=== PATIENT | male | born 1995 | race Caucasian/White ===

== ENCOUNTER → 2018-06-16 07:23 | Outpatient (CLI) | payer OTHER, MEDICAID, SELFPAY | PROVIDERS: Visit Provider Psychiatry & Neurology Clinical Neurophysiology | DX: G40.319 Generalized idiopathic epilepsy and epileptic syndromes, intractable, without status epilepticus (principal) | CPT/HCPCS: 36415; 82140; 82542 ==

== ENCOUNTER → 2018-07-15 08:19 | Outpatient (CLI) | payer OTHER, MEDICAID, SELFPAY | PROVIDERS: Visit Provider Internal Medicine Nephrology | DX: G40.319 Generalized idiopathic epilepsy and epileptic syndromes, intractable, without status epilepticus (principal) | CPT/HCPCS: 36415; 80346; 82542 ==

== ENCOUNTER → 2018-09-16 07:13 | Outpatient (CLI) | payer OTHER, MEDICAID, SELFPAY ==
[2018-09-16 08:35] LABS: Add Manual Diff / Slide Review NO; Basophils Percent Auto 0.3 % (0-2); Eosinophils Percent Auto 0.7 % (2-4); Hematocrit 35.7 % (41-53); Hemoglobin 12.2 g/dL (13.5-17.5); Lymphocytes Percent Auto 38.3 % (25-40); Mean Corpuscular HGB Conc 34.1 % (30-36); Mean Corpuscular Hemoglobin 33.4 PG (26-34); Mean Corpuscular Volume 98.1 fL (80-100); Monocytes Percent Auto 10.1 % (3-14); Neutrophils Absolute Auto 2800 /uL (1500-7000); Neutrophils Percent Auto 50.6 % (50-75); Platelet Count 229 X10^3/uL (150-400); Red Blood Cell Count 3.64 X10^6/uL (4.5-5.9); Red Cell Distribution Width 13.3 % (11.6-14.8); White Blood Cell Count 5.6 X10^3/uL (4.5-11.0)
[2018-09-16 08:46] LABS: Alanine Aminotransferase 21 IU/L (21-72); Albumin 4.1 g/dL (3.5-5.0); Albumin Globulin Ratio 1.3 (1.0-2.8); Alkaline Phosphatase 87 U/L (38-126); Aspartate Aminotransferase 29 IU/L (17-59); Blood Urea Nitrogen 6 mg/dL (9-20); Calcium 9.5 mg/dL (8.4-10.2); Carbon Dioxide 24 mmol/L (22-32); Estimated Glomerular Filt Rate > 60.0 mL/min (>60); Globulin 3.1 g/dL (1.7-4.1); Glucose 108 mg/dL (70-100); HEMOLYSIS < 15 (0-50); Potassium 4.3 mmol/L (3.4-5.1); Sodium 141 mmol/L (137-145); Total Protein 7.2 g/dL (6.3-8.2)
[2018-09-16 08:54] LABS: Bilirubin Total 0.1 mg/dL (0.2-1.3)
[2018-09-16 09:54] LABS: Folate > 20.0 ng/mL (2.76-20.0); Vitamin B12 676 pg/mL (239-931)
[2018-09-16 09:59] LABS: Chloride 129 mmol/L (98-107)
== END ==
PROVIDERS: Visit Provider Nurse Practitioner
DX: G40.319 Generalized idiopathic epilepsy and epileptic syndromes, intractable, without status epilepticus (principal)
CPT/HCPCS: 36415; 80053; 80164; 80339; 80346; 82140; 82379; 82542; 82607; 82746; 85025

== ENCOUNTER 2018-11-08 14:47 | Emergency (ER) | payer OTHER, MEDICAID, SELFPAY ==
[2018-11-08 14:54] VITALS: PULSE 111; RESP 24; TEMP 36.6; O2SAT 98
--- NOTE | 2018-11-08 16:59 | ED.SEIZURE ---
HPI - Seizure General Chief Complaint: Seizure Stated Complaint: RT SIDE IS LIMP Time Seen by Provider: 11/08/18 15:39 Source: patient and family Mode of arrival: ambulatory Limitations: physical limitation History of Present Illness HPI Narrative: 23-year-old male with history of seizures and developmental delay presents with his father and a chief complaint of a seizure a few days ago and a period of time which is right upper extremity was apparently week. That long resolved prior to arrival but patient presents at the request of his doctor. Patient suffered no injury as a consequence of the seizure and has been acting at baseline. Patient has had no fever or chills nor alterations in his medications. The seizure was witnessed by the patient's father and followed a rather typical course, any is often had episodes where his right upper extremity seems to be affected with delayed symptoms after seizure MD complaint: seizure Onset (ago): minute(s) Description of Episode: tonic-clonic movement Duration of episode: 30 -: second(s) Witnessed: yes - by bystander Trauma: No Seizure History: known seizure disorder Place: home Possible Precipitating Event: none Treatments prior to arrival: none Related Data Home Medications Medication Instructions Recorded Confirmed Acidophilus 178 mg PO DAILY 11/08/18 11/08/18 Aloe-Vera 2 oz PO BID 11/08/18 11/08/18 Diacomit Stiripentol 1,000 mg PO BID 11/08/18 11/08/18 Potassium Macy 1.5 ml PO TID 11/08/18 11/08/18 ascorbic acid (vitamin C) 500 mg PO BID 11/08/18 11/08/18 azelastine 1 spray INTRANASAL BID 11/08/18 11/08/18 bacitracin-polymyxin B [Polysporin] 1 applic TOPICAL BID 11/08/18 11/08/18 cholecalciferol (vitamin D3) 1,000 unit PO QPM 11/08/18 11/08/18 [Vitamin D3] clobazam 25 mg PO BID 11/08/18 11/08/18 coenzyme Q10 [Co Q-10] 100 mg PO BID 11/08/18 11/08/18 diazepam 1 dose [place] PRN PRN 11/08/18 11/08/18 divalproex [Depakote] 125 mg PO TID 11/08/18 11/08/18 ferrous gluconate 324 mg PO Q OTHER DAY 11/08/18 11/08/18 fexofenadine 180 mg PO DAILY 11/08/18 11/08/18 folic acid 1 mg PO DAILY 11/08/18 11/08/18 guaifenesin 600 mg PO PRN PRN MDD 6 tabs 11/08/18 11/08/18 guanfacine 1 mg PO BEDTIME 11/08/18 11/08/18 ibuprofen 400 mg PO Q6H PRN 11/08/18 11/08/18 iloperidone [Fanapt] 2 mg PO BID 11/08/18 11/08/18 lactulose 6 ml PO TID 11/08/18 11/08/18 levocarnitine 330 mg PO BID 11/08/18 11/08/18 montelukast 10 mg PO QAM 11/08/18 11/08/18 multivitamin,fq-swix-lgykagoj 1 tab PO DAILY 11/08/18 11/08/18 [Complete Multivitamin] naproxen 250 mg PO BID PRN 11/08/18 11/08/18 olanzapine [Zyprexa Zydis] 5 mg PO BID PRN MDD 2 doses 11/08/18 11/08/18 omega 1-glx-hmq-fish oil [Fish Oil] 1,000 mg PO 1800 11/08/18 11/08/18 polyethylene glycol 3350 17 g PO PRN PRN MDD 2 doses 11/08/18 11/08/18 quetiapine 50 mg PO PRN PRN MDD 50 mg 11/08/18 11/08/18 vitamin B complex 1 tab PO DAILY 11/08/18 11/08/18 vitamin E 400 unit PO 1800 11/08/18 11/08/18 Allergies Allergy/AdvReac Type Severity Reaction Status Date / Time cefprozil [From Cefzil] Allergy Unknown Verified 11/08/18 15:42 prednisone Allergy Unknown Verified 11/08/18 15:42 acetaminophen [From Tylenol] Allergy Verified 11/08/18 14:54 Review of Systems Review of Systems ROS Unobtainable: Unobtainable due to medical condition and Unobtainable due to mental condition PFSH Social History Smoking Status: Never smoker Social History Smoking Status: Never smoker Exam Narrative Exam Narrative: GEN: 23-year-old male is awake and alert and at baseline per father. EYES: Pupils are equal, round, and reactive to light and accommodation. Extraoccular muscles are intact bilaterally. There is no subconjunctival hemorrhage or exudate. CHEST: Lungs are clear to auscultation bilaterally and free of wheezes, rales, or rhonchi. Heart rate is regular rhythm, there are no murmurs, clicks, rubs, or gallops. There is no chest wall tenderness. ABD: Abdomen is soft and nontender. There is no guarding or rebound. Bowel sounds are normal in all 4 quadrants. There is no mass or organomegaly. EXT: Full painless ROM of all extremities with no loss of sensation or strength. No suggested pain in shoulder SKIN: Warm, pink, and dry. No erythema or rash Initial Vital Signs Initial Vital Signs: Vital Signs Temperature 97.9 F 11/08/18 14:54 Pulse Rate 111 H 11/08/18 14:54 Respiratory Rate 24 11/08/18 14:54 Pulse Oximetry 98 11/08/18 14:54 Course Vital Signs - 8 hr 11/08/18 14:54 Temperature 97.9 F Pulse Rate 111 H Respiratory Rate 24 Pulse Oximetry 98 MDM - Seizure MDM Narrative Medical decision making narrative: Patient with known seizure history had a seizure and what appeared to be residual right upper extremity weakness. This has happened with prior seizures and all other symptoms have since resolved. Dislocation versus subluxation is considered as well as Terry's paralysis versus other. Patient is at baseline and discussion of imaging with father results in decision to hold off for now. Return precautions discussed and understanding verbalized by father Discharge Plan Departure Patient Disposition: Home Clinical Impression: Epileptic seizure Discharge Date/Time: 11/08/18 17:03 Interventions: ED Discharge Assessment Last Done: 11/08/18 17:02 Instructions: DI for Seizure Disorder -- Adult Activity Restrictions/Additional Instructions: *You have been diagnosed with [ breakthrough seizure ] *What to do: *Continue to take medications as directed *Follow up with your primary care provider in 2-3 days, call for an appointment. Let them know you were seen in the Emergency Department and that we ask that you be seen in follow up *Return to ER if you should have any new, worsening or concerning symptoms Prescriptions: No Action Acidophilus 178 mg wafer 178 mg PO DAILY RF: 0 Aloe-Vera liquid 2 oz PO BID RF: 0 fexofenadine 180 mg Tablet 180 mg PO DAILY RF: 0 levocarnitine 330 mg Tablet 330 mg PO BID RF: 0 vitamin B complex Tablet 1 tab PO DAILY RF: 0 folic acid 1 mg Tablet 1 mg PO DAILY RF: 0 montelukast 10 mg Tablet 10 mg PO QAM RF: 0 multivitamin,fk-zigp-awecabjp [Complete Multivitamin] Tablet 1 tab PO DAILY RF: 0 coenzyme Q10 [Co Q-10] 100 mg Capsule 100 mg PO BID RF: 0 bacitracin-polymyxin B [Polysporin] 500-10,000 unit/gram Packet 1 applic TOPICAL BID RF: 0 lactulose 10 gram/15 mL Solution 6 ml PO TID RF: 0 azelastine 0.15 % (205.5 mcg) [place],Non-Aerosol 1 spray Intranasal BID RF: 0 iloperidone [Fanapt] 2 mg Tablet 2 mg PO BID RF: 0 ferrous gluconate 324 mg (37.5 mg iron) Tablet 324 mg PO Q OTHER DAY RF: 0 clobazam 10 mg Tablet 25 mg PO BID RF: 0 Diacomit Stiripentol 250 mg capsule 1,000 mg PO BID RF: 0 Potassium Macy 300 mg solution 1.5 ml PO TID RF: 0 divalproex [Depakote] 125 mg Tablet,Delayed Release (Dr/Ec) 125 mg PO TID RF: 0 naproxen 250 mg Tablet 250 mg PO BID PRN (Reason: pain and swelling) RF: 0 ascorbic acid (vitamin C) 500 mg Tablet 500 mg PO BID RF: 0 ibuprofen 400 mg Tablet 400 mg PO Q6H PRN (Reason: pain) RF: 0 guanfacine 1 mg Tablet 1 mg PO BEDTIME RF: 0 polyethylene glycol 3350 17 gram/dose Powder 17 g PO PRN MDD 2 doses PRN (Reason: Constipation) RF: 0 vitamin E 400 unit Capsule 400 unit PO 1800 RF: 0 olanzapine [Zyprexa Zydis] 5 mg Tablet,Disintegrating 5 mg PO BID MDD 2 doses PRN (Reason: Agitation) RF: 0 cholecalciferol (vitamin D3) [Vitamin D3] 1,000 unit Capsule 1,000 unit PO QPM RF: 0 quetiapine 50 mg Tablet 50 mg PO PRN MDD 50 mg PRN (Reason: bad behavior or hitting) RF: 0 omega 3-nrn-gcr-fish oil [Fish Oil] 1,000 mg (120 mg-180 mg) Capsule 1,000 mg PO 1800 RF: 0 guaifenesin 600 mg Tablet Extended Release 12hr 600 mg PO PRN MDD 6 tabs PRN (Reason: Congestion) RF: 0 diazepam gel 1 dose [place] PRN PRN (Reason: seizure) RF: 0
--- NOTE | 2018-11-08 19:38 | ED_ITS ---
HPI - Seizure General Chief Complaint: Seizure Stated Complaint: RT SIDE IS LIMP Time Seen by Provider: 11/08/18 15:39 Source: patient and family Mode of arrival: ambulatory Limitations: physical limitation History of Present Illness HPI Narrative: 23-year-old male with history of seizures and developmental delay presents with his father and a chief complaint of a seizure a few days ago and a period of time which is right upper extremity was apparently week. That long resolved prior to arrival but patient presents at the request of his doctor. Patient suffered no injury as a consequence of the seizure and has been acting at baseline. Patient has had no fever or chills nor alterations in his medications. The seizure was witnessed by the patient's father and followed a rather typical course, any is often had episodes where his right upper extremity seems to be affected with delayed symptoms after seizure MD complaint: seizure Onset (ago): minute(s) Description of Episode: tonic-clonic movement Duration of episode: 30 -: second(s) Witnessed: yes - by bystander Trauma: No Seizure History: known seizure disorder Place: home Possible Precipitating Event: none Treatments prior to arrival: none Related Data Home Medications Medication Instructions Recorded Confirmed Acidophilus 178 mg PO DAILY 11/08/18 11/08/18 Aloe-Vera 2 oz PO BID 11/08/18 11/08/18 Diacomit Stiripentol 1,000 mg PO BID 11/08/18 11/08/18 Potassium [place] 1.5 ml PO TID 11/08/18 11/08/18 ascorbic acid (vitamin C) 500 mg PO BID 11/08/18 11/08/18 azelastine 1 spray INTRANASAL BID 11/08/18 11/08/18 bacitracin-polymyxin B [Polysporin] 1 applic TOPICAL BID 11/08/18 11/08/18 cholecalciferol (vitamin D3) 1,000 unit PO QPM 11/08/18 11/08/18 [Vitamin D3] clobazam 25 mg PO BID 11/08/18 11/08/18 coenzyme Q10 [Co Q-10] 100 mg PO BID 11/08/18 11/08/18 diazepam 1 dose [place] PRN PRN 11/08/18 11/08/18 divalproex [Depakote] 125 mg PO TID 11/08/18 11/08/18 ferrous gluconate 324 mg PO Q OTHER DAY 11/08/18 11/08/18 fexofenadine 180 mg PO DAILY 11/08/18 11/08/18 folic acid 1 mg PO DAILY 11/08/18 11/08/18 guaifenesin 600 mg PO PRN PRN MDD 6 tabs 11/08/18 11/08/18 guanfacine 1 mg PO BEDTIME 11/08/18 11/08/18 ibuprofen 400 mg PO Q6H PRN 11/08/18 11/08/18 iloperidone [Fanapt] 2 mg PO BID 11/08/18 11/08/18 lactulose 6 ml PO TID 11/08/18 11/08/18 levocarnitine 330 mg PO BID 11/08/18 11/08/18 montelukast 10 mg PO QAM 11/08/18 11/08/18 multivitamin,lx-mnjp-twjulvvl 1 tab PO DAILY 11/08/18 11/08/18 [Complete Multivitamin] naproxen 250 mg PO BID PRN 11/08/18 11/08/18 olanzapine [Zyprexa Zydis] 5 mg PO BID PRN MDD 2 doses 11/08/18 11/08/18 omega 4-qsw-lqk-fish oil [Fish Oil] 1,000 mg PO 1800 11/08/18 11/08/18 polyethylene glycol 3350 17 g PO PRN PRN MDD 2 doses 11/08/18 11/08/18 quetiapine 50 mg PO PRN PRN MDD 50 mg 11/08/18 11/08/18 vitamin B complex 1 tab PO DAILY 11/08/18 11/08/18 vitamin E 400 unit PO 1800 11/08/18 11/08/18 Allergies Allergy/AdvReac Type Severity Reaction Status Date / Time cefprozil [From Cefzil] Allergy Unknown Verified 11/08/18 15:42 prednisone Allergy Unknown Verified 11/08/18 15:42 acetaminophen [From Tylenol] Allergy Verified 11/08/18 14:54 Review of Systems Review of Systems ROS Unobtainable: Unobtainable due to medical condition and Unobtainable due to mental condition PFSH Social History Smoking Status: Never smoker Social History Smoking Status: Never smoker Exam Narrative Exam Narrative: GEN: 23-year-old male is awake and alert and at baseline per father. EYES: Pupils are equal, round, and reactive to light and accommodation. Extraoccular muscles are intact bilaterally. There is no subconjunctival hemorrhage or exudate. CHEST: Lungs are clear to auscultation bilaterally and free of wheezes, rales, or rhonchi. Heart rate is regular rhythm, there are no murmurs, clicks, rubs, or gallops. There is no chest wall tenderness. ABD: Abdomen is soft and nontender. There is no guarding or rebound. Bowel sounds are normal in all 4 quadrants. There is no mass or organomegaly. EXT: Full painless ROM of all extremities with no loss of sensation or strength. No suggested pain in shoulder SKIN: Warm, pink, and dry. No erythema or rash Initial Vital Signs Initial Vital Signs: Vital Signs Temperature 97.9 F 11/08/18 14:54 Pulse Rate 111 H 11/08/18 14:54 Respiratory Rate 24 11/08/18 14:54 Pulse Oximetry 98 11/08/18 14:54 Course Vital Signs - 8 hr 11/08/18 14:54 Temperature 97.9 F Pulse Rate 111 H Respiratory Rate 24 Pulse Oximetry 98 MDM - Seizure MDM Narrative Medical decision making narrative: Patient with known seizure history had a seizure and what appeared to be residual right upper extremity weakness. This has happened with prior seizures and all other symptoms have since resolved. Dislocation versus subluxation is considered as well as Terry's paralysis versus other. Patient is at baseline and discussion of imaging with father results in decision to hold off for now. Return precautions discussed and understanding verbalized by father Discharge Plan Departure Patient Disposition: Home Clinical Impression: Epileptic seizure Discharge Date/Time: 11/08/18 17:03 Interventions: ED Discharge Assessment Last Done: 11/08/18 17:02 Instructions: DI for Seizure Disorder -- Adult Activity Restrictions/Additional Instructions: *You have been diagnosed with [ breakthrough seizure ] *What to do: *Continue to take medications as directed *Follow up with your primary care provider in 2-3 days, call for an appointment. Let them know you were seen in the Emergency Department and that we ask that you be seen in follow up *Return to ER if you should have any new, worsening or concerning symptoms Prescriptions: No Action Acidophilus 178 mg wafer 178 mg PO DAILY RF: 0 Aloe-Vera liquid 2 oz PO BID RF: 0 fexofenadine 180 mg Tablet 180 mg PO DAILY RF: 0 levocarnitine 330 mg Tablet 330 mg PO BID RF: 0 vitamin B complex Tablet 1 tab PO DAILY RF: 0 folic acid 1 mg Tablet 1 mg PO DAILY RF: 0 montelukast 10 mg Tablet 10 mg PO QAM RF: 0 multivitamin,rk-[id number]-pfsbqoff [Complete Multivitamin] Tablet 1 tab PO DAILY RF: 0 coenzyme Q10 [Co Q-10] 100 mg Capsule 100 mg PO BID RF: 0 bacitracin-polymyxin B [Polysporin] 500-10,000 unit/gram Packet 1 applic TOPICAL BID RF: 0 lactulose 10 gram/15 mL Solution 6 ml PO TID RF: 0 azelastine 0.15 % (205.5 mcg) [place],Non-Aerosol 1 spray Intranasal BID RF: 0 iloperidone [Fanapt] 2 mg Tablet 2 mg PO BID RF: 0 ferrous gluconate 324 mg (37.5 mg iron) Tablet 324 mg PO Q OTHER DAY RF: 0 clobazam 10 mg Tablet 25 mg PO BID RF: 0 Diacomit Stiripentol 250 mg capsule 1,000 mg PO BID RF: 0 Potassium [place] 300 mg solution 1.5 ml PO TID RF: 0 divalproex [Depakote] 125 mg Tablet,Delayed Release (Dr/Ec) 125 mg PO TID RF: 0 naproxen 250 mg Tablet 250 mg PO BID PRN (Reason: pain and swelling) RF: 0 ascorbic acid (vitamin C) 500 mg Tablet 500 mg PO BID RF: 0 ibuprofen 400 mg Tablet 400 mg PO Q6H PRN (Reason: pain) RF: 0 guanfacine 1 mg Tablet 1 mg PO BEDTIME RF: 0 polyethylene glycol 3350 17 gram/dose Powder 17 g PO PRN MDD 2 doses PRN (Reason: Constipation) RF: 0 vitamin E 400 unit Capsule 400 unit PO 1800 RF: 0 olanzapine [Zyprexa Zydis] 5 mg Tablet,Disintegrating 5 mg PO BID MDD 2 doses PRN (Reason: Agitation) RF: 0 cholecalciferol (vitamin D3) [Vitamin D3] 1,000 unit Capsule 1,000 unit PO QPM RF: 0 quetiapine 50 mg Tablet 50 mg PO PRN MDD 50 mg PRN (Reason: bad behavior or hitting) RF: 0 omega 8-zqx-rdv-fish oil [Fish Oil] 1,000 mg (120 mg-180 mg) Capsule 1,000 mg PO 1800 RF: 0 guaifenesin 600 mg Tablet Extended Release 12hr 600 mg PO PRN MDD 6 tabs PRN (Reason: Congestion) RF: 0 diazepam gel 1 dose NC PRN PRN (Reason: seizure) RF: 0
== END 2018-11-08 17:03 | disposition home or self-care (01) ==
PROVIDERS: Emergency Provider Emergency Medicine
DX: G40.909 Epilepsy, unspecified, not intractable, without status epilepticus (principal)
CPT/HCPCS: 99282

== ENCOUNTER → 2018-11-22 07:09 | Outpatient (CLI) | payer OTHER, MEDICAID, SELFPAY ==
[2018-11-22 15:11] LABS: Alanine Aminotransferase 25 IU/L (21-72); Albumin 4.6 g/dL (3.5-5.0); Albumin Globulin Ratio 1.5 (1.0-2.8); Alkaline Phosphatase 76 U/L (38-126); Aspartate Aminotransferase 29 IU/L (17-59); BUN Creatinine Ratio 11.7 (6-22); Bilirubin Total 0.2 mg/dL (0.2-1.3); Blood Urea Nitrogen 7 mg/dL (9-20); Calcium 10.2 mg/dL (8.4-10.2); Carbon Dioxide 26 mmol/L (22-32); Estimated Glomerular Filt Rate > 60.0 mL/min (>60); Globulin 3.1 g/dL (1.7-4.1); Glucose 69 mg/dL (70-100); HEMOLYSIS < 15 (0-50); Potassium 4.8 mmol/L (3.4-5.1); Sodium 142 mmol/L (137-145); Total Protein 7.7 g/dL (6.3-8.2)
[2018-11-22 15:30] LABS: Chloride 124 mmol/L (98-107)
== END ==
PROVIDERS: Visit Provider Nurse Practitioner
DX: G40.319 Generalized idiopathic epilepsy and epileptic syndromes, intractable, without status epilepticus (principal)
CPT/HCPCS: 36415; 80053; 80346

== ENCOUNTER 2018-11-28 10:11 | Emergency (ER) | payer OTHER, MEDICAID, SELFPAY ==
--- NOTE | 2018-11-28 10:23 | DI.US.S_ITS ---
PROCEDURE: US SCROTUM INDICATIONS: RIGHT SWELLING TECHNIQUE: Real-time scanning was performed of the scrotum and testicles, with image documentation. Color and pulse Doppler interrogation was performed of both testicles. COMPARISON: None. FINDINGS: Right: Testicle is normal in size at 4.8 x 3.1 x 2.5 cm, and homogenous in echotexture. Epididymis is normal in overall size and morphology. No varicoceles. There is a large right hydrocele. Overlying scrotal skin is normal in thickness. Left: Testicle is normal in size at 4.3 x 3.2 x 2.4 cm, and homogeneous in echotexture. Epididymis is normal in overall size and morphology. No varicoceles. There is a large left hydrocele. Overlying scrotal skin is normal in thickness. Doppler: Color and pulse Doppler demonstrate normal and symmetric arterial flow in both testicles. IMPRESSION: 1. Large bilateral hydroceles. 2. Normal testicular blood flow bilaterally. A Dictated by: Karon Monreal M.D. on 11/28/2018 at 11:17 Approved by: Karon Monreal M.D. on 11/28/2018 at 11:22
[2018-11-28 10:25] VITALS: BP 126/69; PULSE 80; RESP 20
--- NOTE | 2018-11-28 10:36 | ED.MALEGU ---
HPI - Male Genitourinary General Chief complaint: Urogenital-Male Stated complaint: CHECK UP Time Seen by Provider: 11/28/18 10:22 Source: other ( Caregiver) Mode of arrival: ambulatory Limitations: physical limitation History of Present Illness HPI Narrative: patient is a 23-year-old male with history of developmental delay presenting with scrotal swelling. He is monitored by 2 caregivers 24 hr a day. Today when the caregiver said he noticed some swelling yesterday he also noted a bruise on his right leg. He does drove himself against ramirez at times. Unclear if there was an exact injury. His he seems to be urinating without difficulty. MD Complaint: testicle swelling Related Data Home Medications Medication Instructions Recorded Confirmed Acidophilus 178 mg PO DAILY 11/08/18 11/28/18 Aloe-Vera 2 oz PO BID 11/08/18 11/28/18 Diacomit Stiripentol 1,000 mg PO BID 11/08/18 11/28/18 Potassium [place] 1.5 ml PO TID 11/08/18 11/28/18 ascorbic acid (vitamin C) 500 mg PO BID 11/08/18 11/28/18 azelastine 1 spray INTRANASAL BID 11/08/18 11/28/18 cholecalciferol (vitamin D3) 1,000 unit PO 1800 11/08/18 11/28/18 [Vitamin D3] clobazam 25 mg PO BID 11/08/18 11/28/18 coenzyme Q10 [Co Q-10] 100 mg PO BID 11/08/18 11/28/18 diazepam 1 dose NM PRN PRN 11/08/18 11/28/18 divalproex [Depakote] 125 mg PO BID 11/08/18 11/28/18 ferrous gluconate 324 mg PO Q OTHER DAY 11/08/18 11/28/18 fexofenadine 180 mg PO DAILY 11/08/18 11/28/18 folic acid 1 mg PO DAILY 11/08/18 11/28/18 guaifenesin 600 mg PO PRN PRN MDD 6 tabs 11/08/18 11/28/18 guanfacine 1 mg PO 2000 11/08/18 11/28/18 ibuprofen 400 mg PO Q6H PRN 11/08/18 11/28/18 iloperidone [Fanapt] 2 mg PO BID 11/08/18 11/28/18 lactulose 6 ml PO TID 11/08/18 11/28/18 levocarnitine 330 mg PO BID 11/08/18 11/28/18 montelukast 10 mg PO QAM 11/08/18 11/28/18 multivitamin,da-qpsa-khwynmar 1 tab PO DAILY 11/08/18 11/28/18 [Complete Multivitamin] naproxen 250 mg PO BID PRN 11/08/18 11/28/18 olanzapine [Zyprexa Zydis] 5 mg PO BID PRN MDD 2 doses 11/08/18 11/28/18 omega 5-yft-onk-fish oil [Fish Oil] 1,000 mg PO 1800 11/08/18 11/28/18 polyethylene glycol 3350 17 g PO PRN PRN MDD 2 doses 11/08/18 11/28/18 quetiapine 50 mg PO PRN PRN MDD 50 mg 11/08/18 11/28/18 vitamin B complex 1 tab PO DAILY 11/08/18 11/28/18 vitamin E 400 unit PO 1800 11/08/18 11/28/18 bacitracin-polymyxin B [Polysporin] 1 applic TOPICAL BID 11/28/18 11/28/18 quetiapine 450 mg PO 199911/28/18 11/28/18 Allergies Allergy/AdvReac Type Severity Reaction Status Date / Time cefprozil [From Cefzil] Allergy Unknown Verified 11/08/18 15:42 prednisone Allergy Unknown Verified 11/08/18 15:42 acetaminophen [From Tylenol] Allergy Verified 11/08/18 14:54 Review of Systems Review of Systems ROS Unobtainable: Other ( limited due to patient's ability this is all per caregiver) Constitutional Denies chills, Denies fatigue and Denies fever(s) Genitourinary Reports as per HPI Endocrine Denies fatigue and Denies flushing PFSH Medical History Developmental delay, severe (Acute) Dysphagia (Acute) Epileptic seizures (Acute) Social History Smoking Status: Never smoker Social History Smoking Status: Never smoker Exam Initial Vital Signs Initial Vital Signs: Vital Signs Pulse Rate 80 11/28/18 10:25 Respiratory Rate 20 11/28/18 10:25 Blood Pressure 126/69 11/28/18 10:25 GENERAL: Developmentally delayed all but pleasant does not appear in distress calmed by caregivers HEENT: head is atraumatic face symmetric CARDIOVASCULAR: Regular rate and rhythm without murmurs, rubs or gallops. RESPIRATORY: Breath sounds equal bilaterally, no wheezes rales or rhonchi. ABDOMEN: Soft, nontender. Normoactive bowel sounds all 4 quadrants. No guarding or rebound. : bruising noted on the scrotum but bilateral swelling minimal tenderness no hernias appreciated. Right in by also noted bruising. EXTREMITIES: Normal range of motion, no clubbing or edema. Neurovascularly intact NEUROLOGICAL: Alert, At baseline moving extremities SKIN: contusion noted on scrotum and right inner thigh no other bruising noted. Course Orders Ordered: ED Orders 11/28/18 10:23 US scrotum Stat Vital Signs - 8 hr 11/28/18 10:25 11/28/18 11:41 Pulse Rate 80 76 Respiratory Rate 20 14 Blood Pressure 126/69 124/82 Pulse Oximetry 99 MDM - Male Genitourinary Imaging Data Scrotal ultrasound: Radiologist's impression: PROCEDURE: US SCROTUM INDICATIONS: RIGHT SWELLING TECHNIQUE: Real-time scanning was performed of the scrotum and testicles, with image documentation. Color and pulse Doppler interrogation was performed of both testicles. COMPARISON: None. FINDINGS: Right: Testicle is normal in size at 4.8 x 3.1 x 2.5 cm, and homogenous in echotexture. Epididymis is normal in overall size and morphology. No varicoceles. There is a large right hydrocele. Overlying scrotal skin is normal in thickness. Left: Testicle is normal in size at 4.3 x 3.2 x 2.4 cm, and homogeneous in echotexture. Epididymis is normal in overall size and morphology. No varicoceles. There is a large left hydrocele. Overlying scrotal skin is normal in thickness. Doppler: Color and pulse Doppler demonstrate normal and symmetric arterial flow in both testicles. IMPRESSION: 1. Large bilateral hydroceles. 2. Normal testicular blood flow bilaterally. A Dictated by: Karon Monreal M.D. on 11/28/2018 at 11:17 MDM Narrative Medical decision making narrative: Patient is noted to have multiple ER visits this month not at this hospital but between [facility] in [facility]. I have discussed this with caregivers. 1st when he had epilepsy 2nd 1 thought to be choking and 3rd 1 for scrotal exam. caregivers are very attentive patient is very comfortable with caregivers. I do not have high suspicion for abuse. Discharge Plan Departure Patient Disposition: Home Clinical Impression: Hydrocele, bilateral Discharge Date/Time: 11/28/18 11:41 Interventions: ED Discharge Assessment Last Done: 11/28/18 11:41 Instructions: DI for Hydrocele-Adult Activity Restrictions/Additional Instructions: *You have been diagnosed with hydrocele *What to do: fluid in the scrotum testicles are within normal limits. Wear supportive underwear to help with fluid. Tylenol or ibuprofen as needed for pain. *Continue to take medications as directed *Follow up with your primary care provider in 2-3 days *Return to ER if you should have Increasing swelling redness pain orany new, worsening or concerning symptoms Prescriptions: No Action Acidophilus 178 mg wafer 178 mg PO DAILY RF: 0 Aloe-Vera liquid 2 oz PO BID RF: 0 fexofenadine 180 mg Tablet 180 mg PO DAILY RF: 0 levocarnitine 330 mg Tablet 330 mg PO BID RF: 0 vitamin B complex Tablet 1 tab PO DAILY RF: 0 folic acid 1 mg Tablet 1 mg PO DAILY RF: 0 montelukast 10 mg Tablet 10 mg PO QAM RF: 0 Complete Multivitamin Tablet 1 tab PO DAILY RF: 0 coenzyme Q10 [Co Q-10] 100 mg Capsule 100 mg PO BID RF: 0 lactulose 10 gram/15 mL Solution 6 ml PO TID RF: 0 azelastine 0.15 % (205.5 mcg) [place],Non-Aerosol 1 spray Intranasal BID RF: 0 Fanapt 2 mg Tablet 2 mg PO BID RF: 0 ferrous gluconate 324 mg (37.5 mg iron) Tablet 324 mg PO Q OTHER DAY RF: 0 clobazam 10 mg Tablet 25 mg PO BID RF: 0 Diacomit Stiripentol 250 mg capsule 1,000 mg PO BID RF: 0 Potassium [place] 300 mg solution 1.5 ml PO TID RF: 0 divalproex [Depakote] 125 mg Tablet,Delayed Release (Dr/Ec) 125 mg PO BID RF: 0 naproxen 250 mg Tablet 250 mg PO BID PRN (Reason: pain and swelling) RF: 0 ascorbic acid (vitamin C) 500 mg Tablet 500 mg PO BID RF: 0 ibuprofen 400 mg Tablet 400 mg PO Q6H PRN (Reason: pain) RF: 0 guanfacine 1 mg Tablet 1 mg PO 2000 RF: 0 polyethylene glycol 3350 17 gram/dose Powder 17 g PO PRN MDD 2 doses PRN (Reason: Constipation) RF: 0 vitamin E 400 unit Capsule 400 unit PO 1800 RF: 0 olanzapine [Zyprexa Zydis] 5 mg Tablet,Disintegrating 5 mg PO BID MDD 2 doses PRN (Reason: Agitation) RF: 0 cholecalciferol (vitamin D3) [Vitamin D3] 1,000 unit Capsule 1,000 unit PO 1800 RF: 0 quetiapine 50 mg Tablet 50 mg PO PRN MDD 50 mg PRN (Reason: bad behavior or hitting) RF: 0 omega 9-ixv-gbr-fish oil [Fish Oil] 1,000 mg (120 mg-180 mg) Capsule 1,000 mg PO 1800 RF: 0 guaifenesin 600 mg Tablet Extended Release 12hr 600 mg PO PRN MDD 6 tabs PRN (Reason: Congestion) RF: 0 diazepam gel 1 dose NM PRN PRN (Reason: seizure) RF: 0 bacitracin-polymyxin B [Polysporin] 500-10,000 unit/gram Ointment 1 applic topical BID RF: 0 quetiapine 450 mg PO 2000 RF: 0
--- NOTE | 2018-11-28 10:50 | ED_ITS ---
HPI - Male Genitourinary General Chief complaint: Urogenital-Male Stated complaint: CHECK UP Time Seen by Provider: 11/28/18 10:22 Source: other ( Caregiver) Mode of arrival: ambulatory Limitations: physical limitation History of Present Illness HPI Narrative: patient is a 23-year-old male with history of developmental delay presenting with scrotal swelling. He is monitored by 2 caregivers 24 hr a day. Today when the caregiver said he noticed some swelling yesterday he also noted a bruise on his right leg. He does drove himself against ramirez at times. Unclear if there was an exact injury. His he seems to be urinating without difficulty. MD Complaint: testicle swelling Related Data Home Medications Medication Instructions Recorded Confirmed Acidophilus 178 mg PO DAILY 11/08/18 11/28/18 Aloe-Vera 2 oz PO BID 11/08/18 11/28/18 Diacomit Stiripentol 1,000 mg PO BID 11/08/18 11/28/18 Potassium [place] 1.5 ml PO TID 11/08/18 11/28/18 ascorbic acid (vitamin C) 500 mg PO BID 11/08/18 11/28/18 azelastine 1 spray INTRANASAL BID 11/08/18 11/28/18 cholecalciferol (vitamin D3) 1,000 unit PO 1800 11/08/18 11/28/18 [Vitamin D3] clobazam 25 mg PO BID 11/08/18 11/28/18 coenzyme Q10 [Co Q-10] 100 mg PO BID 11/08/18 11/28/18 diazepam 1 dose [place] PRN PRN 11/08/18 11/28/18 divalproex [Depakote] 125 mg PO BID 11/08/18 11/28/18 ferrous gluconate 324 mg PO Q OTHER DAY 11/08/18 11/28/18 fexofenadine 180 mg PO DAILY 11/08/18 11/28/18 folic acid 1 mg PO DAILY 11/08/18 11/28/18 guaifenesin 600 mg PO PRN PRN MDD 6 tabs 11/08/18 11/28/18 guanfacine 1 mg PO 2000 11/08/18 11/28/18 ibuprofen 400 mg PO Q6H PRN 11/08/18 11/28/18 iloperidone [Fanapt] 2 mg PO BID 11/08/18 11/28/18 lactulose 6 ml PO TID 11/08/18 11/28/18 levocarnitine 330 mg PO BID 11/08/18 11/28/18 montelukast 10 mg PO QAM 11/08/18 11/28/18 multivitamin,ny-dtng-ufacrvjw 1 tab PO DAILY 11/08/18 11/28/18 [Complete Multivitamin] naproxen 250 mg PO BID PRN 11/08/18 11/28/18 olanzapine [Zyprexa Zydis] 5 mg PO BID PRN MDD 2 doses 11/08/18 11/28/18 omega 7-fze-jbx-fish oil [Fish Oil] 1,000 mg PO 1800 11/08/18 11/28/18 polyethylene glycol 3350 17 g PO PRN PRN MDD 2 doses 11/08/18 11/28/18 quetiapine 50 mg PO PRN PRN MDD 50 mg 11/08/18 11/28/18 vitamin B complex 1 tab PO DAILY 11/08/18 11/28/18 vitamin E 400 unit PO 1800 11/08/18 11/28/18 bacitracin-polymyxin B [Polysporin] 1 applic TOPICAL BID 11/28/18 11/28/18 quetiapine 450 mg PO 199911/28/18 11/28/18 Allergies Allergy/AdvReac Type Severity Reaction Status Date / Time cefprozil [From Cefzil] Allergy Unknown Verified 11/08/18 15:42 prednisone Allergy Unknown Verified 11/08/18 15:42 acetaminophen [From Tylenol] Allergy Verified 11/08/18 14:54 Review of Systems Review of Systems ROS Unobtainable: Other ( limited due to patient's ability this is all per caregiver) Constitutional Denies chills, Denies fatigue and Denies fever(s) Genitourinary Reports as per HPI Endocrine Denies fatigue and Denies flushing PFSH Medical History Developmental delay, severe (Acute) Dysphagia (Acute) Epileptic seizures (Acute) Social History Smoking Status: Never smoker Social History Smoking Status: Never smoker Exam Initial Vital Signs Initial Vital Signs: Vital Signs Pulse Rate 80 11/28/18 10:25 Respiratory Rate 20 11/28/18 10:25 Blood Pressure 126/69 11/28/18 10:25 GENERAL: Developmentally delayed all but pleasant does not appear in distress calmed by caregivers HEENT: head is atraumatic face symmetric CARDIOVASCULAR: Regular rate and rhythm without murmurs, rubs or gallops. RESPIRATORY: Breath sounds equal bilaterally, no wheezes rales or rhonchi. ABDOMEN: Soft, nontender. Normoactive bowel sounds all 4 quadrants. No guarding or rebound. : bruising noted on the scrotum but bilateral swelling minimal tenderness no hernias appreciated. Right in by also noted bruising. EXTREMITIES: Normal range of motion, no clubbing or edema. Neurovascularly intact NEUROLOGICAL: Alert, At baseline moving extremities SKIN: contusion noted on scrotum and right inner thigh no other bruising noted. Course Orders Ordered: ED Orders 11/28/18 10:23 US scrotum Stat Vital Signs - 8 hr 11/28/18 10:25 11/28/18 11:41 Pulse Rate 80 76 Respiratory Rate 20 14 Blood Pressure 126/69 124/82 Pulse Oximetry 99 MDM - Male Genitourinary Imaging Data Scrotal ultrasound: Radiologist's impression: PROCEDURE: US SCROTUM INDICATIONS: RIGHT SWELLING TECHNIQUE: Real-time scanning was performed of the scrotum and testicles, with image documentation. Color and pulse Doppler interrogation was performed of both testicles. COMPARISON: None. FINDINGS: Right: Testicle is normal in size at 4.8 x 3.1 x 2.5 cm, and homogenous in echotexture. Epididymis is normal in overall size and morphology. No varicoceles. There is a large right hydrocele. Overlying scrotal skin is normal in thickness. Left: Testicle is normal in size at 4.3 x 3.2 x 2.4 cm, and homogeneous in echotexture. Epididymis is normal in overall size and morphology. No varicoceles. There is a large left hydrocele. Overlying scrotal skin is normal in thickness. Doppler: Color and pulse Doppler demonstrate normal and symmetric arterial flow in both testicles. IMPRESSION: 1. Large bilateral hydroceles. 2. Normal testicular blood flow bilaterally. A Dictated by: Karon Monreal M.D. on 11/28/2018 at 11:17 MDM Narrative Medical decision making narrative: Patient is noted to have multiple ER visits this month not at this hospital but between [facility] in [facility]. I have discussed this with caregivers. 1st when he had epilepsy 2nd 1 thought to be choking and 3rd 1 for scrotal exam. caregivers are very attentive patient is very comfortable with caregivers. I do not have high suspicion for abuse. Discharge Plan Departure Patient Disposition: Home Clinical Impression: Hydrocele, bilateral Discharge Date/Time: 11/28/18 11:41 Interventions: ED Discharge Assessment Last Done: 11/28/18 11:41 Instructions: DI for Hydrocele-Adult Activity Restrictions/Additional Instructions: *You have been diagnosed with hydrocele *What to do: fluid in the scrotum testicles are within normal limits. Wear supportive underwear to help with fluid. Tylenol or ibuprofen as needed for pain. *Continue to take medications as directed *Follow up with your primary care provider in 2-3 days *Return to ER if you should have Increasing swelling redness pain orany new, worsening or concerning symptoms Prescriptions: No Action Acidophilus 178 mg wafer 178 mg PO DAILY RF: 0 Aloe-Vera liquid 2 oz PO BID RF: 0 fexofenadine 180 mg Tablet 180 mg PO DAILY RF: 0 levocarnitine 330 mg Tablet 330 mg PO BID RF: 0 vitamin B complex Tablet 1 tab PO DAILY RF: 0 folic acid 1 mg Tablet 1 mg PO DAILY RF: 0 montelukast 10 mg Tablet 10 mg PO QAM RF: 0 Complete Multivitamin Tablet 1 tab PO DAILY RF: 0 coenzyme Q10 [Co Q-10] 100 mg Capsule 100 mg PO BID RF: 0 lactulose 10 gram/15 mL Solution 6 ml PO TID RF: 0 azelastine 0.15 % (205.5 mcg) [place],Non-Aerosol 1 spray Intranasal BID RF: 0 Fanapt 2 mg Tablet 2 mg PO BID RF: 0 ferrous gluconate 324 mg (37.5 mg iron) Tablet 324 mg PO Q OTHER DAY RF: 0 clobazam 10 mg Tablet 25 mg PO BID RF: 0 Diacomit Stiripentol 250 mg capsule 1,000 mg PO BID RF: 0 Potassium [place] 300 mg solution 1.5 ml PO TID RF: 0 divalproex [Depakote] 125 mg Tablet,Delayed Release (Dr/Ec) 125 mg PO BID RF: 0 naproxen 250 mg Tablet 250 mg PO BID PRN (Reason: pain and swelling) RF: 0 ascorbic acid (vitamin C) 500 mg Tablet 500 mg PO BID RF: 0 ibuprofen 400 mg Tablet 400 mg PO Q6H PRN (Reason: pain) RF: 0 guanfacine 1 mg Tablet 1 mg PO 2000 RF: 0 polyethylene glycol 3350 17 gram/dose Powder 17 g PO PRN MDD 2 doses PRN (Reason: Constipation) RF: 0 vitamin E 400 unit Capsule 400 unit PO 1800 RF: 0 olanzapine [Zyprexa Zydis] 5 mg Tablet,Disintegrating 5 mg PO BID MDD 2 doses PRN (Reason: Agitation) RF: 0 cholecalciferol (vitamin D3) [Vitamin D3] 1,000 unit Capsule 1,000 unit PO 1800 RF: 0 quetiapine 50 mg Tablet 50 mg PO PRN MDD 50 mg PRN (Reason: bad behavior or hitting) RF: 0 omega 0-rcd-ayb-fish oil [Fish Oil] 1,000 mg (120 mg-180 mg) Capsule 1,000 mg PO 1800 RF: 0 guaifenesin 600 mg Tablet Extended Release 12hr 600 mg PO PRN MDD 6 tabs PRN (Reason: Congestion) RF: 0 diazepam gel 1 dose [place] PRN PRN (Reason: seizure) RF: 0 bacitracin-polymyxin B [Polysporin] 500-10,000 unit/gram Ointment 1 applic topical BID RF: 0 quetiapine 450 mg PO 2000 RF: 0
[2018-11-28 11:41] VITALS: BP 124/82; PULSE 76; RESP 14; O2SAT 99
== END 2018-11-28 11:41 | disposition home or self-care (01) ==
PROVIDERS: Emergency Provider Emergency Medicine
DX: N43.3 Hydrocele, unspecified (principal)
CPT/HCPCS: 76870; 99283; 99284

== ENCOUNTER 2019-02-09 11:01 | Emergency (ER) | payer OTHER, MEDICAID, SELFPAY ==
[2019-02-09 11:11] VITALS: BP 136/73; PULSE 97; RESP 18; TEMP 36.6; O2SAT 98
--- NOTE | 2019-02-09 11:53 | ED.SKABFB ---
HPI - Skin/Abscess/Foreign Bdy General Chief complaint: Skin/Abscess/Foreign Body Stated complaint: infection under red armpit Time Seen by Provider: 02/09/19 11:02 Source: patient and family Mode of arrival: wheelchair Limitations: altered mental status History of Present Illness HPI narrative: 23-year-old male nonsmoker with developmental delay presents with caregivers who mention there are painful, red bumps under his armpits, 1 of which is draining pus. Patient has no history of the same and no significant history of skin infection. He has not been sick with fever and has had a normal appetite. He is not acting out or engaging in behavior which would suggest he is uncomfortable or sick. He is largely at baseline per caregivers MD complaint: abscess/boil Onset (ago): day(s) Tetanus up to date: yes Location: LUE and RUE Severity: mild Associated symptoms: denies other symptoms Treatments prior to arrival: none Related Data Home Medications Medication Instructions Recorded Confirmed Acidophilus 178 mg PO DAILY 11/08/18 02/09/19 Aloe-Vera 2 oz PO BID 11/08/18 02/09/19 Diacomit Stiripentol 1,000 mg PO BID 11/08/18 02/09/19 Potassium [place] 1.5 ml PO TID 11/08/18 02/09/19 ascorbic acid (vitamin C) 500 mg PO BID 11/08/18 02/09/19 azelastine 1 spray INTRANASAL BID 11/08/18 02/09/19 cholecalciferol (vitamin D3) 1,000 unit PO 1800 11/08/18 02/09/19 [Vitamin D3] clobazam 25 mg PO BID 11/08/18 02/09/19 coenzyme Q10 [Co Q-10] 100 mg PO BID 11/08/18 02/09/19 diazepam 1 dose [place] PRN PRN 11/08/18 02/09/19 divalproex [Depakote] 125 mg PO BID 11/08/18 02/09/19 ferrous gluconate 324 mg PO Q OTHER DAY 11/08/18 02/09/19 fexofenadine 180 mg PO DAILY 11/08/18 02/09/19 folic acid 1 mg PO DAILY 11/08/18 02/09/19 guaifenesin 600 mg PO PRN PRN MDD 6 tabs 11/08/18 02/09/19 guanfacine 1 mg PO 199911/08/18 02/09/19 ibuprofen 400 mg PO Q6H PRN 11/08/18 02/09/19 iloperidone [Fanapt] 2 mg PO BID 11/08/18 02/09/19 lactulose 6 ml PO TID 11/08/18 02/09/19 levocarnitine 330 mg PO BID 11/08/18 02/09/19 montelukast 10 mg PO QAM 11/08/18 02/09/19 multivitamin,[id number]-[id number] 1 tab PO DAILY 11/08/18 02/09/19 [Complete Multivitamin] naproxen 250 mg PO BID PRN 11/08/18 02/09/19 olanzapine [Zyprexa Zydis] 5 mg PO BID PRN MDD 2 doses 11/08/18 02/09/19 omega 2-zkh-doe-fish oil [Fish Oil] 1,000 mg PO 1800 11/08/18 02/09/19 polyethylene glycol 3350 17 g PO PRN PRN MDD 2 doses 11/08/18 02/09/19 quetiapine 50 mg PO PRN PRN MDD 50 mg 11/08/18 02/09/19 vitamin B complex 1 tab PO DAILY 11/08/18 02/09/19 vitamin E 400 unit PO 179911/08/18 02/09/19 bacitracin-polymyxin B [Polysporin] 1 applic TOPICAL BID 11/28/18 02/09/19 quetiapine 450 mg PO 199911/28/18 02/09/19 Previous Rx's Medication Instructions Recorded chlorhexidine gluconate 2 % TOP BID #64 each 02/09/19 doxycycline hyclate 100 mg PO BID #20 tab 02/09/19 Allergies Allergy/AdvReac Type Severity Reaction Status Date / Time cefprozil [From Cefzil] Allergy Unknown Verified 02/09/19 11:15 prednisone Allergy Unknown Verified 02/09/19 11:15 acetaminophen [From Tylenol] Allergy Verified 02/09/19 11:15 Review of Systems Review of Systems patient is non-verbal, therefore answers are from caregivers Constitutional Denies chills, Denies fever(s), Denies lethargy and Denies weakness Eyes Denies change in vision, Denies eye discharge, Denies irritation and Denies loss of vision ENT Ears, Nose, Mouth, and Throat: Denies change in voice, Denies neck pain and Denies sore throat Cardiovascular Denies chest pain, Denies irregular heart rhythm, Denies lightheadedness, Denies palpitations, Denies dyspnea, Denies dyspnea on exertion and Denies orthopnea Respiratory Denies cough, Denies dyspnea, Denies dyspnea on exertion and Denies wheezing Gastrointestinal Gastrointestinal: Denies abdominal pain, Denies change in bowel habits, Denies diarrhea, Denies nausea and Denies vomiting Genitourinary Denies hematuria, Denies flank pain, Denies urinary incontinence and Denies urinary urgency Musculoskeletal Denies neck pain Integumentary/Breasts Denies pruritus, Reports erythema, Reports rash and Denies wounds Neurologic Denies confusion, Denies loss of vision and Denies weakness Psychiatric Denies anxiety, Denies confusion, Denies depression, Denies homicidal ideation and Denies suicidal ideation Endocrine Denies palpitations Hematologic/Lymphatic Denies easy bruising Allergic/Immunologic Denies wheezing [facility] Medical History Developmental delay, severe (Acute) Dysphagia (Acute) Epileptic seizures (Acute) Social History Smoking Status: Never smoker Social History Smoking Status: Never smoker Exam Narrative Exam Narrative: GEN: 23-year-old male resting comfortably, in no obvious distress EYES: Pupils are equal, round, and reactive to light and accommodation. Extraoccular muscles are intact bilaterally. There is no subconjunctival hemorrhage or exudate. CHEST: Lungs are clear to auscultation bilaterally and free of wheezes, rales, or rhonchi. Heart rate is regular rhythm, there are no murmurs, clicks, rubs, or gallops. There is no chest wall tenderness. ABD: Abdomen is soft and nontender. There is no guarding or rebound. Bowel sounds are normal in all 4 quadrants. There is no mass or organomegaly. EXT: Full painless ROM of all extremities with no loss of sensation or strength. SKIN: Bilateral axilla with small 0.5 cm, tender, erythematous pustules versus small abscess. Only to demonstrate any fluctuance or suggestion of possible drainage in these to her spontaneously draining already. Wound culture obtained Initial Vital Signs Initial Vital Signs: Vital Signs Temperature 97.8 F 02/09/19 11:11 Pulse Rate 97 H 02/09/19 11:11 Respiratory Rate 18 02/09/19 11:11 Blood Pressure 136/73 02/09/19 11:11 Pulse Oximetry 98 02/09/19 11:11 Course Orders Ordered: ED Orders 02/09/19 12:25 Wound Culture and Gram Stain Stat Vital Signs - 8 hr 02/09/19 11:11 Temperature 97.8 F Pulse Rate 97 H Respiratory Rate 18 Blood Pressure 136/73 Pulse Oximetry 98 Discharge Plan Departure Patient Disposition: Home Clinical Impression: Abscess of axilla, right Discharge Date/Time: 02/09/19 12:16 Interventions: ED Discharge Assessment Last Done: 02/09/19 12:15 Instructions: DI for Skin Abscess Activity Restrictions/Additional Instructions: *You have been diagnosed with [ bilateral axillary abscess, possible hidradenitis ] *What to do: *Take medications as directed *Follow up with your primary care provider in 2-3 days, call for an appointment. Let them know you were seen in the Emergency Department and that we ask that you be seen in follow up *Return to ER if you should have any new, worsening or concerning symptoms Prescriptions: New doxycycline hyclate 100 mg tablet 100 mg PO BID Qty: 20 RF: 0 chlorhexidine gluconate 2 % towelette 2 % TOP BID Qty: 64 RF: 0 No Action Acidophilus 178 mg wafer 178 mg PO DAILY RF: 0 Aloe-Vera liquid 2 oz PO BID RF: 0 fexofenadine 180 mg Tablet 180 mg PO DAILY RF: 0 levocarnitine 330 mg Tablet 330 mg PO BID RF: 0 vitamin B complex Tablet 1 tab PO DAILY RF: 0 folic acid 1 mg Tablet 1 mg PO DAILY RF: 0 montelukast 10 mg Tablet 10 mg PO QAM RF: 0 Complete Multivitamin Tablet 1 tab PO DAILY RF: 0 coenzyme Q10 [Co Q-10] 100 mg Capsule 100 mg PO BID RF: 0 lactulose 10 gram/15 mL Solution 6 ml PO TID RF: 0 azelastine 0.15 % (205.5 mcg) [place],Non-Aerosol 1 spray Intranasal BID RF: 0 Fanapt 2 mg Tablet 2 mg PO BID RF: 0 ferrous gluconate 324 mg (37.5 mg iron) Tablet 324 mg PO Q OTHER DAY RF: 0 clobazam 10 mg Tablet 25 mg PO BID RF: 0 Diacomit Stiripentol 250 mg capsule 1,000 mg PO BID RF: 0 Potassium [place] 300 mg solution 1.5 ml PO TID RF: 0 divalproex [Depakote] 125 mg Tablet,Delayed Release (Dr/Ec) 125 mg PO BID RF: 0 naproxen 250 mg Tablet 250 mg PO BID PRN (Reason: pain and swelling) RF: 0 ascorbic acid (vitamin C) 500 mg Tablet 500 mg PO BID RF: 0 ibuprofen 400 mg Tablet 400 mg PO Q6H PRN (Reason: pain) RF: 0 guanfacine 1 mg Tablet 1 mg PO 1999 RF: 0 polyethylene glycol 3350 17 gram/dose Powder 17 g PO PRN MDD 2 doses PRN (Reason: Constipation) RF: 0 vitamin E 400 unit Capsule 400 unit PO 1800 RF: 0 olanzapine [Zyprexa Zydis] 5 mg Tablet,Disintegrating 5 mg PO BID MDD 2 doses PRN (Reason: Agitation) RF: 0 cholecalciferol (vitamin D3) [Vitamin D3] 1,000 unit Capsule 1,000 unit PO 1800 RF: 0 quetiapine 50 mg Tablet 50 mg PO PRN MDD 50 mg PRN (Reason: bad behavior or hitting) RF: 0 omega 5-sxs-fxg-fish oil [Fish Oil] 1,000 mg (120 mg-180 mg) Capsule 1,000 mg PO 1800 RF: 0 guaifenesin 600 mg Tablet Extended Release 12hr 600 mg PO PRN MDD 6 tabs PRN (Reason: Congestion) RF: 0 diazepam gel 1 dose [place] PRN PRN (Reason: seizure) RF: 0 bacitracin-polymyxin B [Polysporin] 500-10,000 unit/gram Ointment 1 applic topical BID RF: 0 quetiapine 450 mg PO 2000 RF: 0
--- NOTE | 2019-02-09 12:00 | PC.NURSE ---
parent reports, right armpit red,swollen and drainage worsen than the left armpit. denies fever or vomiting. dr gamez obtained wound culture sent to lab.
--- NOTE | 2019-02-09 18:28 | ED_ITS ---
HPI - Skin/Abscess/Foreign Bdy General Chief complaint: Skin/Abscess/Foreign Body Stated complaint: infection under red armpit Time Seen by Provider: 02/09/19 11:02 Source: patient and family Mode of arrival: wheelchair Limitations: altered mental status History of Present Illness HPI narrative: 23-year-old male nonsmoker with developmental delay presents with caregivers who mention there are painful, red bumps under his armpits, 1 of which is draining pus. Patient has no history of the same and no significant history of skin infection. He has not been sick with fever and has had a normal appetite. He is not acting out or engaging in behavior which would suggest he is uncomfortable or sick. He is largely at baseline per caregivers MD complaint: abscess/boil Onset (ago): day(s) Tetanus up to date: yes Location: LUE and RUE Severity: mild Associated symptoms: denies other symptoms Treatments prior to arrival: none Related Data Home Medications Medication Instructions Recorded Confirmed Acidophilus 178 mg PO DAILY 11/08/18 02/09/19 Aloe-Vera 2 oz PO BID 11/08/18 02/09/19 Diacomit Stiripentol 1,000 mg PO BID 11/08/18 02/09/19 Potassium [place] 1.5 ml PO TID 11/08/18 02/09/19 ascorbic acid (vitamin C) 500 mg PO BID 11/08/18 02/09/19 azelastine 1 spray INTRANASAL BID 11/08/18 02/09/19 cholecalciferol (vitamin D3) 1,000 unit PO 1800 11/08/18 02/09/19 [Vitamin D3] clobazam 25 mg PO BID 11/08/18 02/09/19 coenzyme Q10 [Co Q-10] 100 mg PO BID 11/08/18 02/09/19 diazepam 1 dose [place] PRN PRN 11/08/18 02/09/19 divalproex [Depakote] 125 mg PO BID 11/08/18 02/09/19 ferrous gluconate 324 mg PO Q OTHER DAY 11/08/18 02/09/19 fexofenadine 180 mg PO DAILY 11/08/18 02/09/19 folic acid 1 mg PO DAILY 11/08/18 02/09/19 guaifenesin 600 mg PO PRN PRN MDD 6 tabs 11/08/18 02/09/19 guanfacine 1 mg PO 199911/08/18 02/09/19 ibuprofen 400 mg PO Q6H PRN 11/08/18 02/09/19 iloperidone [Fanapt] 2 mg PO BID 11/08/18 02/09/19 lactulose 6 ml PO TID 11/08/18 02/09/19 levocarnitine 330 mg PO BID 11/08/18 02/09/19 montelukast 10 mg PO QAM 11/08/18 02/09/19 multivitamin,zy-mpqg-eblwzfqd 1 tab PO DAILY 11/08/18 02/09/19 [Complete Multivitamin] naproxen 250 mg PO BID PRN 11/08/18 02/09/19 olanzapine [Zyprexa Zydis] 5 mg PO BID PRN MDD 2 doses 11/08/18 02/09/19 omega 9-sdu-mzr-fish oil [Fish Oil] 1,000 mg PO 1800 11/08/18 02/09/19 polyethylene glycol 3350 17 g PO PRN PRN MDD 2 doses 11/08/18 02/09/19 quetiapine 50 mg PO PRN PRN MDD 50 mg 11/08/18 02/09/19 vitamin B complex 1 tab PO DAILY 11/08/18 02/09/19 vitamin E 400 unit PO 179911/08/18 02/09/19 bacitracin-polymyxin B [Polysporin] 1 applic TOPICAL BID 11/28/18 02/09/19 quetiapine 450 mg PO 199911/28/18 02/09/19 Previous Rx's Medication Instructions Recorded chlorhexidine gluconate 2 % TOP BID #64 each 02/09/19 doxycycline hyclate 100 mg PO BID #20 tab 02/09/19 Allergies Allergy/AdvReac Type Severity Reaction Status Date / Time cefprozil [From Cefzil] Allergy Unknown Verified 02/09/19 11:15 prednisone Allergy Unknown Verified 02/09/19 11:15 acetaminophen [From Tylenol] Allergy Verified 02/09/19 11:15 Review of Systems Review of Systems patient is non-verbal, therefore answers are from caregivers Constitutional Denies chills, Denies fever(s), Denies lethargy and Denies weakness Eyes Denies change in vision, Denies eye discharge, Denies irritation and Denies loss of vision ENT Ears, Nose, Mouth, and Throat: Denies change in voice, Denies neck pain and Denies sore throat Cardiovascular Denies chest pain, Denies irregular heart rhythm, Denies lightheadedness, Denies palpitations, Denies dyspnea, Denies dyspnea on exertion and Denies orthopnea Respiratory Denies cough, Denies dyspnea, Denies dyspnea on exertion and Denies wheezing Gastrointestinal Gastrointestinal: Denies abdominal pain, Denies change in bowel habits, Denies diarrhea, Denies nausea and Denies vomiting Genitourinary Denies hematuria, Denies flank pain, Denies urinary incontinence and Denies urinary urgency Musculoskeletal Denies neck pain Integumentary/Breasts Denies pruritus, Reports erythema, Reports rash and Denies wounds Neurologic Denies confusion, Denies loss of vision and Denies weakness Psychiatric Denies anxiety, Denies confusion, Denies depression, Denies homicidal ideation and Denies suicidal ideation Endocrine Denies palpitations Hematologic/Lymphatic Denies easy bruising Allergic/Immunologic Denies wheezing [facility] Medical History Developmental delay, severe (Acute) Dysphagia (Acute) Epileptic seizures (Acute) Social History Smoking Status: Never smoker Social History Smoking Status: Never smoker Exam Narrative Exam Narrative: GEN: 23-year-old male resting comfortably, in no obvious distress EYES: Pupils are equal, round, and reactive to light and accommodation. Extraoccular muscles are intact bilaterally. There is no subconjunctival hemorrhage or exudate. CHEST: Lungs are clear to auscultation bilaterally and free of wheezes, rales, or rhonchi. Heart rate is regular rhythm, there are no murmurs, clicks, rubs, or gallops. There is no chest wall tenderness. ABD: Abdomen is soft and nontender. There is no guarding or rebound. Bowel sounds are normal in all 4 quadrants. There is no mass or organomegaly. EXT: Full painless ROM of all extremities with no loss of sensation or strength. SKIN: Bilateral axilla with small 0.5 cm, tender, erythematous pustules versus small abscess. Only to demonstrate any fluctuance or suggestion of possible drainage in these to her spontaneously draining already. Wound culture obtained Initial Vital Signs Initial Vital Signs: Vital Signs Temperature 97.8 F 02/09/19 11:11 Pulse Rate 97 H 02/09/19 11:11 Respiratory Rate 18 02/09/19 11:11 Blood Pressure 136/73 02/09/19 11:11 Pulse Oximetry 98 02/09/19 11:11 Course Orders Ordered: ED Orders 02/09/19 12:25 Wound Culture and Gram Stain Stat Vital Signs - 8 hr 02/09/19 11:11 Temperature 97.8 F Pulse Rate 97 H Respiratory Rate 18 Blood Pressure 136/73 Pulse Oximetry 98 Discharge Plan Departure Patient Disposition: Home Clinical Impression: Abscess of axilla, right Discharge Date/Time: 02/09/19 12:16 Interventions: ED Discharge Assessment Last Done: 02/09/19 12:15 Instructions: DI for Skin Abscess Activity Restrictions/Additional Instructions: *You have been diagnosed with [ bilateral axillary abscess, possible hidradenitis ] *What to do: *Take medications as directed *Follow up with your primary care provider in 2-3 days, call for an appointment. Let them know you were seen in the Emergency Department and that we ask that you be seen in follow up *Return to ER if you should have any new, worsening or concerning symptoms Prescriptions: New doxycycline hyclate 100 mg tablet 100 mg PO BID Qty: 20 RF: 0 chlorhexidine gluconate 2 % towelette 2 % TOP BID Qty: 64 RF: 0 No Action Acidophilus 178 mg wafer 178 mg PO DAILY RF: 0 Aloe-Vera liquid 2 oz PO BID RF: 0 fexofenadine 180 mg Tablet 180 mg PO DAILY RF: 0 levocarnitine 330 mg Tablet 330 mg PO BID RF: 0 vitamin B complex Tablet 1 tab PO DAILY RF: 0 folic acid 1 mg Tablet 1 mg PO DAILY RF: 0 montelukast 10 mg Tablet 10 mg PO QAM RF: 0 Complete Multivitamin Tablet 1 tab PO DAILY RF: 0 coenzyme Q10 [Co Q-10] 100 mg Capsule 100 mg PO BID RF: 0 lactulose 10 gram/15 mL Solution 6 ml PO TID RF: 0 azelastine 0.15 % (205.5 mcg) [place],Non-Aerosol 1 spray Intranasal BID RF: 0 Fanapt 2 mg Tablet 2 mg PO BID RF: 0 ferrous gluconate 324 mg (37.5 mg iron) Tablet 324 mg PO Q OTHER DAY RF: 0 clobazam 10 mg Tablet 25 mg PO BID RF: 0 Diacomit Stiripentol 250 mg capsule 1,000 mg PO BID RF: 0 Potassium [place] 300 mg solution 1.5 ml PO TID RF: 0 divalproex [Depakote] 125 mg Tablet,Delayed Release (Dr/Ec) 125 mg PO BID RF: 0 naproxen 250 mg Tablet 250 mg PO BID PRN (Reason: pain and swelling) RF: 0 ascorbic acid (vitamin C) 500 mg Tablet 500 mg PO BID RF: 0 ibuprofen 400 mg Tablet 400 mg PO Q6H PRN (Reason: pain) RF: 0 guanfacine 1 mg Tablet 1 mg PO 1999 RF: 0 polyethylene glycol 3350 17 gram/dose Powder 17 g PO PRN MDD 2 doses PRN (Reason: Constipation) RF: 0 vitamin E 400 unit Capsule 400 unit PO 1800 RF: 0 olanzapine [Zyprexa Zydis] 5 mg Tablet,Disintegrating 5 mg PO BID MDD 2 doses PRN (Reason: Agitation) RF: 0 cholecalciferol (vitamin D3) [Vitamin D3] 1,000 unit Capsule 1,000 unit PO 1800 RF: 0 quetiapine 50 mg Tablet 50 mg PO PRN MDD 50 mg PRN (Reason: bad behavior or hitting) RF: 0 omega 2-rny-pmk-fish oil [Fish Oil] 1,000 mg (120 mg-180 mg) Capsule 1,000 mg PO 1800 RF: 0 guaifenesin 600 mg Tablet Extended Release 12hr 600 mg PO PRN MDD 6 tabs PRN (Reason: Congestion) RF: 0 diazepam gel 1 dose [place] PRN PRN (Reason: seizure) RF: 0 bacitracin-polymyxin B [Polysporin] 500-10,000 unit/gram Ointment 1 applic topical BID RF: 0 quetiapine 450 mg PO 2000 RF: 0
== END 2019-02-09 12:16 | disposition home or self-care (01) ==
PROVIDERS: Emergency Provider Emergency Medicine
DX: L02.411 Cutaneous abscess of right axilla (principal); L02.412 Cutaneous abscess of left axilla
CPT/HCPCS: 87070; 87075; 87077; 87147; 87186; 87205; 99282; 99283

== ENCOUNTER → 2019-04-28 07:57 | Outpatient (CLI) | payer OTHER, MEDICAID, SELFPAY ==
[2019-05-01 13:32] LABS: Valproic Acid (Depakene) Total 89.3 mg/L (50.0-100.0)
== END ==
PROVIDERS: Visit Provider Obstetrics & Gynecology Gynecologic Oncology
DX: G40.909 Epilepsy, unspecified, not intractable, without status epilepticus (principal); Z79.899 Other long term (current) drug therapy
CPT/HCPCS: 36415; 80164; 80339; 80346

== ENCOUNTER → 2019-07-17 07:09 | Outpatient (CLI) | payer OTHER, MEDICAID, SELFPAY | PROVIDERS: Visit Provider Dermatology MOHS-Micrographic Surgery | DX: E72.20 Disorder of urea cycle metabolism, unspecified (principal) | CPT/HCPCS: 36415; 82140 ==

== ENCOUNTER → 2020-05-15 07:28 | Outpatient (CLI) | payer OTHER, MEDICAID, SELFPAY ==
[2020-05-15 08:20] LABS: Ammonia (NH3) 89 umol/L (9-30)
[2020-05-15 08:23] LABS: Alanine Aminotransferase 16 IU/L (<50); Albumin 4.8 g/dL (3.5-5.0); Albumin Globulin Ratio 1.3 (1.0-2.8); Alkaline Phosphatase 58 U/L (38-126); Aspartate Aminotransferase 26 IU/L (17-59); BUN Creatinine Ratio 13.5 (6-22); Bilirubin Total 0.4 mg/dL (0.2-1.3); Blood Urea Nitrogen 7 mg/dL (9-20); Calcium 10.1 mg/dL (8.4-10.2); Carbon Dioxide 25 mmol/L (22-32); Cholesterol 176 mg/dL (140-199); Estimated Glomerular Filt Rate > 60.0 mL/min (>60); Globulin 3.6 g/dL (1.7-4.1); Glucose 92 mg/dL (70-100); HDL Cholesterol 54 mg/dL (40-60); HEMOLYSIS < 15 (0-50); LDL Cholesterol Calculated 86 mg/dL (<100); Potassium 4.5 mmol/L (3.4-5.1); Sodium 135 mmol/L (137-145); Total Protein 8.4 g/dL (6.3-8.2); Triglycerides 180 mg/dL (35-150)
[2020-05-15 08:49] LABS: Chloride 125 mmol/L (98-107)
== END ==
PROVIDERS: Referring Provider Psychiatry & Neurology Psychiatry; Visit Provider Psychiatry & Neurology Psychiatry
DX: Z51.81 Encounter for therapeutic drug level monitoring (principal)
CPT/HCPCS: 36415; 80053; 80061; 82140

== ENCOUNTER → 2020-05-20 09:01 | Outpatient (CLI) | payer OTHER, MEDICAID, SELFPAY ==
[2020-05-20 09:53] LABS: BUN Creatinine Ratio 12.5 (6-22); Blood Urea Nitrogen 7 mg/dL (9-20); Calcium 10.5 mg/dL (8.4-10.2); Carbon Dioxide 27 mmol/L (22-32); Estimated Glomerular Filt Rate > 60.0 mL/min (>60); Glucose 126 mg/dL (70-100); HEMOLYSIS < 15 (0-50); Potassium 4.3 mmol/L (3.4-5.1); Sodium 138 mmol/L (137-145)
[2020-05-20 10:14] LABS: Chloride 122 mmol/L (98-107)
== END ==
PROVIDERS: Referring Provider Psychiatry & Neurology Psychiatry; Visit Provider Psychiatry & Neurology Psychiatry
DX: E87.8 Other disorders of electrolyte and fluid balance, not elsewhere classified (principal)
CPT/HCPCS: 36415; 80048